=== PATIENT | male | born 1950 | race Caucasian/White ===

== ENCOUNTER → 2017-01-30 | Day surgery (SDC) | payer MEDICARE, BC ==
[~2017-01-30] MED LIST: Dextrose 5%-0.45% NaCl 1,000 ML IV ONE; Dextrose 5%-0.45% NaCl 1,000 ML IV SCH; Midazolam 1 MG/ML 2 ML SDV IV ONE; Midazolam 1 MG/ML 2 ML SDV ONE; Sodium Chloride 0.9% 10 ML Syringe FLUSH PRN; fentaNYL 100 MCG/2 ML SDV IV ONE; fentaNYL 100 MCG/2 ML SDV ONE
--- NOTE | 2017-01-30 12:55 | OR ---
DATE: 01/30/2017 PROCEDURE: Esophagogastroduodenoscopy and multiple pinch biopsies. INSTRUMENT USED: GIF-H180 Olympus video panendoscope. PREMEDICATIONS: No oral topical anesthesia used. Fentanyl 100 mcg intravenous, Versed 2 mg intravenous. Nasal O2 cannula. The procedure was done under pulse oximetry, BP recording, and clinical research monitor. INDICATION: The patient with persistent heartburn as well as related chest pain and abdominal pain, unexplained and not responsive to medical measures, on lot PPI. Has alcohol habituation. Esophagogastroduodenoscopy is for detection active erosive lesions, Chang esophagus, and/or malignancy also under consideration, H. pylori status to be determined, endoscopic hemostasis therapy if needed. The scope was passed with ease. Adequate visualization of the esophagus was made proximal to distal areas. No upper esophageal lesions identified. No distal esophageal stricture. No uphill or downhill esophageal varices. No Leona-Kowalski tear. No esophageal polyp or tumor mass identified. Sliding hiatal hernia was noted. No proximal gastric varices noted. Gastric fundus examination by retroflexion showed no malignant lesions, no gastric ulcer, malignant mass, or vascular ectasia identified. Duodenal bulb showed no ulcer. Visualized second part of the duodenum was unremarkable. Multiple pinch biopsies were taken from the gastric antrum and proximal body and sent for PyloriTek test for H. pylori, and if negative in an hour, the tissue is to be sent for histopathology. No bleeding was noted from any of the visualized areas at the completion of examination. Photographs were taken of duodenal bulb, gastric antrum, fundus, and distal esophagus. IMPRESSION: Sliding hiatal hernia. The patient tolerated the procedure well. [facility] /[id number]
--- NOTE | 2017-01-30 13:52 | LETTER ---
01/30/2017 [address] [place] [address] RE: LEWIS SANABRIA : 1950 Dear Ms. Mackenzie: Mr. Lewis Sanabria had esophagogastroduodenoscopy done this morning and he tolerated the procedure well. I herewith send a copy of the endoscopy note and photographs for your review. Thank you. Sincerely, [facility] /[id number]
[2017-01-30 14:28] VITALS: BP 154/84
== END | disposition home or self-care (01) ==
LOC: DL.ENDO 06:26
PROVIDERS: ATTEND Internal Medicine Gastroenterology
DX: K29.50 Unspecified chronic gastritis without bleeding (principal); K31.7 Polyp of stomach and duodenum; K44.9 Diaphragmatic hernia without obstruction or gangrene; I10 Essential (primary) hypertension; E66.09 Other obesity due to excess calories; F41.1 Generalized anxiety disorder
CPT/HCPCS: 43239; 87077; J7042; 88305; 88342; J2250; J3010

== ENCOUNTER 2022-01-01 20:08 | Emergency (ER) | payer MEDICARE, BC ==
[2022-01-01 20:41] VITALS: BP 110/70; PULSE 72
[2022-01-01] MEDS ORDERED: Bacitracin Oint 1 GM U/D Packet TOP ONE (20:53)
[2022-01-01] MEDS ORDERED: Lidocaine 1% 5 ML VIAL INJECT ONE (20:53)
== END 2022-01-01 21:40 | disposition home or self-care (01) ==
LOC: DL.ED 20:08
DX: S01.81XA Laceration without foreign body of other part of head, initial encounter (principal); J44.9 Chronic obstructive pulmonary disease, unspecified; E66.9 Obesity, unspecified; Z68.30 Body mass index [BMI] 30.0-30.9, adult; Z79.899 Other long term (current) drug therapy; Z79.82 Long term (current) use of aspirin; Z86.16 Personal history of COVID-19; Z87.891 Personal history of nicotine dependence; W01.10XA Fall on same level from slipping, tripping and stumbling with subsequent striking against unspecified object, initial encounter
CPT/HCPCS: 12011; 70450; 72125; 99283; 99284